=== PATIENT | female | born 1995 | race American Indian/Alaskan Native ===

== ENCOUNTER 2018-12-16 10:38 | Emergency (ER) | payer OTHER ==
[2018-12-16 11:31] LABS: Bilirubin,Urine NEG (Negative); Blood,Urine NEG (Negative); Color,Urine Straw (Yellow); Protein,Urine <15 mg/dL mg/dL (Negative); Urobilinogen,Urine < 2.0 mg/dL (<2.0); WBC,Urine < 1.0 /HPF (0.0-6.0)
[2018-12-16 11:36] LABS: HCG Qualitative,Urine Negative (Negative)
--- NOTE | 2018-12-16 11:49 | Emergency Department Report ---
ED Female HPI - General Chief complaint: Urogenital-Female Stated complaint: VAGINAL DISCHARGE Time Seen by Provider: 12/16/18 11:34 Source: patient Mode of arrival: Ambulatory Limitations: No Limitations - History of Present Illness Initial comments: 23-year-old female presents to the emergency room for vaginal discharge with odor for 3 days. Patient also admits to lower abdominal discomfort. Patient denies any fever no chills no nausea no vomiting no abdominal pain per patient. Patient reports she is sexually active one partner unprotected. She does report that she used Plan B last week and comes in with vaginal pain with odor. Patient has no past medical history she is 1 para 0. With one . Patient has no other significant S medical history. MD Complaint: vaginal discharge -: days(s) (3) Location: suprapubic Radiation: non-radiating Consistency: intermittent Improves with: none Worsens with: none Are you Now?: No Last Menstrual Period: 12/04/18 EDC: 09/10/19 Associated Symptoms: vaginal discharge. denies: vaginal bleeding, abdominal pain, nausea/vomiting, fever/chills, dysuria - Related Data Sexually active: Yes (one partner male unprotected) : 1 Para: 0 A: 1 Previous Rx's Medication Instructions Recorded Last Taken Type metroNIDAZOLE [Flagyl TAB] 250 mg PO Q8HR #21 tablet 12/16/18 Unknown Rx Allergies Allergy/AdvReac Type Severity Reaction Status Date / Time No Known Allergies Allergy Unverified 12/16/18 10:39 ED Review of Systems ROS: Stated complaint: VAGINAL DISCHARGE Other details as noted in HPI Comment: All other systems reviewed and negative ED Past Medical Hx - Past Medical History Previous Medical History?: No - Surgical History Past Surgical History?: No - Social History Smoking Status: Never Smoker Substance Use Type: None - Medications Home Medications: Home Medications Medication Instructions Recorded Confirmed Last Taken Type metroNIDAZOLE [Flagyl TAB] 250 mg PO Q8HR #21 tablet 12/16/18 Unknown Rx ED Physical Exam - General Limitations: No Limitations General appearance: alert, in no apparent distress - Head Head exam: Present: atraumatic, normocephalic - Eye Eye exam: Present: normal appearance - ENT ENT exam: Present: mucous membranes moist - GI/Abdominal GI/Abdominal exam: Present: soft, normal bowel sounds. Absent: distended, tenderness, guarding, rebound - External exam: Present: normal external exam. Absent: erythema, swelling, lacerations Speculum exam: Present: normal speculum exam. Absent: erythema, vaginal discharge, cervical discharge Bi-manual exam: Present: normal bi-manual exam - Extremities Exam Extremities exam: Present: normal inspection, full ROM - Back Exam Back exam: Present: normal inspection, full ROM - Neurological Exam Neurological exam: Present: alert, oriented X3 - Psychiatric Psychiatric exam: Present: normal affect, normal mood - Skin Skin exam: Present: warm, dry, intact, normal color. Absent: rash ED Course Vital Signs 12/16/18 10:40 Temperature 97.9 F Pulse Rate 60 Respiratory 18 Rate Blood Pressure 119/76 [Right] O2 Sat by Pulse 99 Oximetry ED Medical Decision Making - Medical Decision Making H and has been evaluated by this provider in fast track. Wet prep GC chlamydia has been sent to the lab. Urinalysis and urine tests both are negative. Wet prep return shows patient has a clue cells. Critical care attestation.: If time is entered above; I have spent that time in minutes in the direct care of this critically ill patient, excluding procedure time. ED Disposition Clinical Impression: Bacterial vaginosis Disposition: DC-01 TO HOME OR SELFCARE Is pt being admited?: No Does the pt Need Aspirin: No Condition: Stable Instructions: Bacterial Vaginosis (ED) Additional Instructions: Complete antibiotics as prescribed. You can follow up here in medical records with a picture ID to obtain your gonorrhea and chlamydia tests results in 5-7 days. Prescriptions: metroNIDAZOLE [Flagyl TAB] 250 mg PO Q8HR #21 tablet Forms: STI Treatment and Prevention
[2018-12-16 11:57] VITALS: BP 119/76
== END 2018-12-16 12:59 | disposition home or self-care (01) ==
LOC: ED 10:38
DX: N76.0 Acute vaginitis (principal); B96.89 Other specified bacterial agents as the cause of diseases classified elsewhere
CPT/HCPCS: 81001; 81025; 87210; 87591; 99283

== ENCOUNTER 2019-03-06 12:21 | Emergency (ER) | payer MEDICAID, OTHER ==
--- NOTE | 2019-03-06 13:21 | Emergency Department Report ---
ED Female HPI - General Chief complaint: Abdominal Pain Stated complaint: STOMACH PAIN/VAGINAL DISCOMFORT Time Seen by Provider: 03/06/19 13:01 Source: patient Mode of arrival: Ambulatory Limitations: No Limitations - History of Present Illness Initial comments: This is a 23-year-old female who presents to ED complaining of vaginal irritation and itching 1 week. Patient denies any vaginal odor, dysuria, fever, vaginal lesions. Patient states unprotected sex with her fianc. Patient states that she is unsure if she she will lites discharged to be evaluated. She denies pelvic pain. Since this last menstrual period as 02/07/2019. Complaint: vaginal discharge Last Menstrual Period: 02/05/19 EDC: 11/12/19 - Related Data Previous Rx's Medication Instructions Recorded Last Taken Type metroNIDAZOLE [Flagyl TAB] 250 mg PO Q8HR #21 tablet 12/16/18 Unknown Rx Acetaminophen [Acetaminophen TAB] 500 mg PO Q8HR #30 tablet 03/06/19 Unknown Rx Vit-Fe Fumar-FA [ 1 tab PO QDAY #40 tablet 03/06/19 Unknown Rx Vitamin] Allergies Allergy/AdvReac Type Severity Reaction Status Date / Time No Known Allergies Allergy Verified 03/06/19 12:23 ED Review of Systems ROS: Stated complaint: STOMACH PAIN/VAGINAL DISCOMFORT Other details as noted in HPI Comment: All other systems reviewed and negative ED Past Medical Hx - Past Medical History Previous Medical History?: No - Surgical History Past Surgical History?: No - Social History Smoking Status: Never Smoker Substance Use Type: None - Medications Home Medications: Home Medications Medication Instructions Recorded Confirmed Last Taken Type metroNIDAZOLE [Flagyl TAB] 250 mg PO Q8HR #21 tablet 12/16/18 Unknown Rx Acetaminophen [Acetaminophen TAB] 500 mg PO Q8HR #30 tablet 03/06/19 Unknown Rx Vit-Fe Fumar-FA [ 1 tab PO QDAY #40 tablet 03/06/19 Unknown Rx Vitamin] ED Physical Exam - General Limitations: No Limitations General appearance: alert, in no apparent distress - Head Head exam: Present: atraumatic, normocephalic - Eye Eye exam: Present: normal appearance - ENT ENT exam: Present: mucous membranes moist - Neck Neck exam: Present: normal inspection - Respiratory Respiratory exam: Present: normal lung sounds bilaterally. Absent: respiratory distress - Cardiovascular Cardiovascular Exam: Present: regular rate, normal rhythm. Absent: systolic murmur, diastolic murmur, rubs, gallop - GI/Abdominal GI/Abdominal exam: Present: soft, normal bowel sounds. Absent: distended, tenderness - External exam: Present: normal external exam. Absent: erythema, swelling, lesions Speculum exam: Present: normal speculum exam, vaginal discharge (sample taken for wet prep and GC, no motor) Bi-manual exam: Present: normal bi-manual exam. Absent: cervical motion tendernes, adnexal tenderness, uterine enlargement, uterine tenderness - Extremities Exam Extremities exam: Present: normal inspection, full ROM - Back Exam Back exam: Present: normal inspection, full ROM. Absent: tenderness, CVA tenderness (R), CVA tenderness (L) - Neurological Exam Neurological exam: Present: alert, oriented X3 - Psychiatric Psychiatric exam: Present: normal affect, normal mood - Skin Skin exam: Present: warm, dry, intact, normal color. Absent: rash ED Course Vital Signs 03/06/19 03/06/19 13:22 16:34 Temperature 98.5 F Pulse Rate 54 L Respiratory 17 16 Rate Blood Pressure 111/76 [Right] O2 Sat by Pulse 100 Oximetry ED Medical Decision Making - Medical Decision Making This is a 23-year-old female presents with positive . Wet prep shows no acute findings no bacterial yeast or STD. Gonorrhea Chlamydia cultures were sent. I discussed the patient that she may call back in 3-4 days for results or she will be contacted if positive Discussed findings with the patient. Patient was adamant that she wanted an ultrasound. Patient had no vaginal bleeding, pelvic pain upon my examination. The patient she may follow-up with her [facility] for further workup for her . I discussed patient if she has any worsening symptoms or new onset of symptoms to return to ED The patient was verbally insulting to myself and nursing staff and walked out of the ED without any instruction paperwork. She is in no acute distress she was walking up and down the ED hallway Critical care attestation.: If time is entered above; I have spent that time in minutes in the direct care of this critically ill patient, excluding procedure time. ED Disposition Clinical Impression: Positive test, Vaginitis Disposition: TO HOME OR SELFCARE Is pt being admited?: No Does the pt Need Aspirin: No Condition: Stable Instructions: (ED), Vaginitis (ED) Additional Instructions: Make sure to follow up with the [facility] as discussed. Take all your medications as you've been prescribed. If you have any worsening symptoms or develop new symptoms please return to ED immediately. Prescriptions: Acetaminophen [Acetaminophen TAB] 500 mg PO Q8HR #30 tablet Vit-Fe Fumar-FA [ Vitamin] 1 tab PO QDAY #40 tablet Referrals: FRANCOIS ROE MD [Primary Care Provider] - 3-5 Days [facility] [Provider Group] - 3-5 Days [facility] [Provider Group] - 3-5 Days Forms: Work/School Release Form(ED) Time of Disposition: 17:18
[2019-03-06 16:34] VITALS: BP 111/76
[2019-03-06 16:41] LABS: HCG Qualitative,Urine Positive (Negative)
[2019-03-06 16:42] LABS: Bilirubin,Urine NEG (Negative); Blood,Urine NEG (Negative); Color,Urine Yellow (Yellow); Protein,Urine <15 mg/dL mg/dL (Negative); Urobilinogen,Urine < 2.0 mg/dL (<2.0)
== END 2019-03-06 17:31 | disposition home or self-care (01) ==
LOC: ED 12:21
DX: O23.591 Infection of other part of genital tract in pregnancy, first trimester (principal); Z3A.01 Less than 8 weeks gestation of pregnancy
CPT/HCPCS: 81001; 81025; 87210; 87591

== ENCOUNTER 2021-06-07 15:04 | Emergency (ER) | payer OTHER, MEDICAID ==
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
[2021-06-07 17:51] VITALS: BP 114/83
== END 2021-06-07 18:19 | disposition home or self-care (01) ==
LOC: ED 15:04
DX: S02.2XXA Fracture of nasal bones, initial encounter for closed fracture (principal); Z79.899 Other long term (current) drug therapy; V87.7XXA Person injured in collision between other specified motor vehicles (traffic), initial encounter; Y93.89 Activity, other specified; Y92.488 Other paved roadways as the place of occurrence of the external cause; Y99.8 Other external cause status
CPT/HCPCS: 70160; 99283